=== PATIENT | male | born 1940 | race Caucasian/White ===

== ENCOUNTER 2018-02-25 09:28 | Outpatient (REF) | payer MEDICARE, SELFPAY ==
[2018-02-25 20:38] LABS: Abs Immature Grans 0.01 k/cumm (0.0-0.09); Absolute Basophil Count 0.02 k/cumm (0.0-0.2); Absolute Eosinophil Count 0.06 k/cumm (0.0-0.7); Absolute Lymphocyte Count 1.89 k/cumm (1.2-3.4); Absolute Monocyte Count 0.43 k/cumm (0.11-0.7); Absolute Neutrophil Count 3.36 k/cumm (1.2-6.7); Basophils % 0.3; HCT 44.3 % (40.0-50.0); HGB 14.7 g/dL (13.5-17.5); Immature Grans % 0.2; Lymphocytes % 32.8; Mean Corp. HGB Concentration 33.2 g/dL (32.0-36.0); Mean Corpuscular Hemoglobin 29.6 pg (27.0-33.0); Mean Corpuscular Volume 89.3 fL (80-95); Mean Platelet Volume 12.1 fL (8.0-11.0); Monocytes % 7.5; Neutrophils % 58.2; Platelet Count 113 x1000/uL (130-400); RBC 4.96 m/cumm (4.50-6.00); RBC Distribution Width 13.5 % (11.8-14.1); White Blood Cell Count 5.77 k/cumm (4.4-10.8)
[2018-02-25 20:42] LABS: ALT 21 U/L (12-78); AST 19 U/L (15-37); Albumin 3.5 g/dL (3.4-5.0); Alkaline Phosphatase 62 U/L (46-116); Anion Gap 6.9 mmol/L (3-11); BUN 15 mg/dL (7-18); CO2 26.1 mmol/L (21.0-32.0); CREATININE 0.87 mg/dL (0.70-1.30); Calcium 8.3 mg/dL (8.5-10.1); Chloride 103 mmol/L (98-107); Glucose 189 mg/dL (70-100); LDH 173 U/L (85-227); Potassium 4.1 mmol/L (3.5-5.1); Sodium 136 mmol/L (136-145); Total Protein 6.4 g/dL (6.4-8.2)
== END 2018-02-25 09:29 ==
LOC: LBN 09:28
PROVIDERS: PCP Internal Medicine; Visit Provider Internal Medicine Hematology & Oncology
DX: C91.90 Lymphoid leukemia, unspecified not having achieved remission (principal)
CPT/HCPCS: 80053; 83615; 85025

== ENCOUNTER 2018-06-11 11:50 | Outpatient (REF) | payer MEDICARE, SELFPAY ==
[2018-06-11 19:39] LABS: Abs Immature Grans 0.01 k/cumm (0.0-0.09); Absolute Basophil Count 0.02 k/cumm (0.0-0.2); Absolute Eosinophil Count 0.07 k/cumm (0.0-0.7); Absolute Lymphocyte Count 1.85 k/cumm (1.2-3.4); Absolute Monocyte Count 0.55 k/cumm (0.11-0.7); Absolute Neutrophil Count 3.53 k/cumm (1.2-6.7); Basophils % 0.3; Eosinophils % 1.2; HCT 44.1 % (40.0-50.0); Immature Grans % 0.2; Lymphocytes % 30.7; Mean Corpuscular Hemoglobin 30.4 pg (27.0-33.0); Mean Corpuscular Volume 89.5 fL (80-95); Mean Platelet Volume 12.6 fL (8.0-11.0); Monocytes % 9.1; Neutrophils % 58.5; Platelet Count 126 x1000/uL (130-400); RBC 4.93 m/cumm (4.50-6.00); RBC Distribution Width 13.2 % (11.8-14.1); White Blood Cell Count 6.03 k/cumm (4.4-10.8)
[2018-06-11 19:56] LABS: ALT 21 U/L (12-78); Anion Gap 7.3 mmol/L (3-11); BUN 16 mg/dL (7-18); CO2 26.7 mmol/L (21.0-32.0); CREATININE 0.88 mg/dL (0.70-1.30); Calcium 8.5 mg/dL (8.5-10.1); Chloride 105 mmol/L (98-107); Glucose 167 mg/dL (70-100); Potassium 3.8 mmol/L (3.5-5.1); Sodium 139 mmol/L (136-145)
[2018-06-11 20:53] LABS: LDL CHOLESTEROL 51 mg/dL (<100)
[2018-06-15 19:28] LABS: AST 18 U/L (15-37); Albumin 3.4 g/dL (3.4-5.0); Alkaline Phosphatase 65 U/L (46-116); Bilirubin, Total 0.9 mg/dL (0.2-1.0); LDH 156 U/L (85-227); Total Protein 6.3 g/dL (6.4-8.2)
== END 2018-06-11 12:10 ==
LOC: NCHCN 11:50
PROVIDERS: PCP Internal Medicine; Visit Provider Internal Medicine
DX: E11.9 Type 2 diabetes mellitus without complications (principal); E78.5 Hyperlipidemia, unspecified; I10 Essential (primary) hypertension; D61.818 Other pancytopenia; N40.0 Benign prostatic hyperplasia without lower urinary tract symptoms; C91.90 Lymphoid leukemia, unspecified not having achieved remission
CPT/HCPCS: 80048; 80053; 83721; 83615; 84460; 85025

== ENCOUNTER 2018-07-20 13:28 | Outpatient (REF) | payer MEDICARE, SELFPAY ==
[2018-07-22 11:56] LABS: PSA, Diagnostic 1.9 ng/ml (0-6.5)
== END 2018-07-20 13:48 ==
LOC: NCHCN 13:28
PROVIDERS: PCP Internal Medicine; Visit Provider Internal Medicine
DX: N40.0 Benign prostatic hyperplasia without lower urinary tract symptoms (principal)
CPT/HCPCS: 84153

== ENCOUNTER 2018-09-22 11:52 | Outpatient (REF) | payer MEDICARE, SELFPAY ==
[2018-09-22 18:45] LABS: Abs Immature Grans 0.09 k/cumm (0.0-0.09); Absolute Eosinophil Count 0.04 k/cumm (0.0-0.7); HCT 43.2 % (40.0-50.0); HGB 14.3 g/dL (13.5-17.5); Mean Corp. HGB Concentration 33.1 g/dL (32.0-36.0); Mean Corpuscular Hemoglobin 29.1 pg (27.0-33.0); Mean Platelet Volume 12.9 fL (8.0-11.0); RBC 4.91 m/cumm (4.50-6.00); RBC Distribution Width 13.4 % (11.8-14.1); White Blood Cell Count 4.37 k/cumm (4.4-10.8)
[2018-09-22 19:19] LABS: ALT 23 U/L (12-78); AST 26 U/L (15-37); Albumin 3.4 g/dL (3.4-5.0); Alkaline Phosphatase 62 U/L (46-116); Anion Gap 9.7 mmol/L (3-11); BUN 15 mg/dL (7-18); Bilirubin, Total 0.6 mg/dL (0.2-1.0); CO2 25.3 mmol/L (21.0-32.0); CREATININE 0.86 mg/dL (0.70-1.30); Calcium 8.2 mg/dL (8.5-10.1); Chloride 103 mmol/L (98-107); Glucose 163 mg/dL (70-100); Potassium 3.9 mmol/L (3.5-5.1); Sodium 138 mmol/L (136-145)
[2018-09-22 20:00] LABS: Platelet Count 90 x1000/uL (130-400)
[2018-09-22 20:01] LABS: Absolute Monocyte Count 0.44 k/cumm (0.11-0.7); Absolute Neutrophil Count 2.45 k/cumm (1.2-6.7); Atypical Lymphocytes % 10; Diff Comment Manual Differential
[2018-09-22 20:02] LABS: RBC Morphology Normal
== END 2018-09-22 12:12 ==
LOC: LBN 11:52
PROVIDERS: PCP Internal Medicine; Visit Provider Nurse Practitioner Adult Health
DX: C91.90 Lymphoid leukemia, unspecified not having achieved remission (principal); D61.810 Antineoplastic chemotherapy induced pancytopenia
CPT/HCPCS: 80053; 85025

== ENCOUNTER 2018-12-01 11:14 | Outpatient (REF) | payer MEDICARE, SELFPAY ==
[2018-12-01 19:25] LABS: Abs Immature Grans 0.01 k/cumm (0.0-0.09); Absolute Basophil Count 0.02 k/cumm (0.0-0.2); Absolute Eosinophil Count 0.03 k/cumm (0.0-0.7); Absolute Lymphocyte Count 1.29 k/cumm (1.2-3.4); Basophils % 0.4; Eosinophils % 0.6; HCT 44.7 % (40.0-50.0); HGB 14.7 g/dL (13.5-17.5); Immature Grans % 0.2; Lymphocytes % 26.6; Mean Corp. HGB Concentration 32.9 g/dL (32.0-36.0); Mean Corpuscular Hemoglobin 28.2 pg (27.0-33.0); Mean Corpuscular Volume 85.6 fL (80-95); Monocytes % 10.3; Neutrophils % 61.9; Platelet Count 102 x1000/uL (130-400); RBC 5.22 m/cumm (4.50-6.00); RBC Distribution Width 13.9 % (11.8-14.1); White Blood Cell Count 4.85 k/cumm (4.4-10.8)
[2018-12-01 19:38] LABS: ALT 24 U/L (12-78); AST 22 U/L (15-37); Albumin 3.3 g/dL (3.4-5.0); Alkaline Phosphatase 70 U/L (46-116); Anion Gap 7.6 mmol/L (3-11); BUN 18 mg/dL (7-18); Bilirubin, Total 0.8 mg/dL (0.2-1.0); CO2 28.4 mmol/L (21.0-32.0); CREATININE 0.93 mg/dL (0.70-1.30); Calcium 8.5 mg/dL (8.5-10.1); Chloride 101 mmol/L (98-107); Glucose 214 mg/dL (70-100); Potassium 4.2 mmol/L (3.5-5.1); Sodium 137 mmol/L (136-145); Total Protein 6.2 g/dL (6.4-8.2)
== END 2018-12-01 11:34 ==
LOC: LBN 11:14
PROVIDERS: PCP Internal Medicine; Visit Provider Nurse Practitioner Adult Health
DX: D61.810 Antineoplastic chemotherapy induced pancytopenia (principal); C91.90 Lymphoid leukemia, unspecified not having achieved remission
CPT/HCPCS: 80053; 85025

== ENCOUNTER 2018-12-16 18:06 | Outpatient (REF) | payer MEDICARE, MEDICAID, SELFPAY ==
[2018-12-16 18:57] LABS: COMMENT (LAB VIEW ONLY) 93.52 mg/dL; Microalb ug/mg Crea 218.2 ug/mg Cr
== END 2018-12-16 18:26 ==
LOC: NCHCN 18:06
PROVIDERS: PCP Internal Medicine; Visit Provider Internal Medicine
DX: R60.0 Localized edema (principal); C91.10 Chronic lymphocytic leukemia of B-cell type not having achieved remission; E11.9 Type 2 diabetes mellitus without complications; F32.9 Major depressive disorder, single episode, unspecified
CPT/HCPCS: 82043; 82570

== ENCOUNTER 2018-12-28 08:26 | Outpatient (REF) | payer MEDICARE, SELFPAY ==
[2018-12-28 18:52] LABS: Abs Immature Grans 0.03 k/cumm (0.0-0.09); Absolute Basophil Count 0.03 k/cumm (0.0-0.2); Absolute Eosinophil Count 0.06 k/cumm (0.0-0.7); Absolute Monocyte Count 0.41 k/cumm (0.11-0.7); Absolute Neutrophil Count 3.05 k/cumm (1.2-6.7); Basophils % 0.6; Eosinophils % 1.3; HCT 42.9 % (40.0-50.0); HGB 14.2 g/dL (13.5-17.5); Immature Grans % 0.6; Lymphocytes % 25.1; Mean Corp. HGB Concentration 33.1 g/dL (32.0-36.0); Mean Corpuscular Hemoglobin 28.7 pg (27.0-33.0); Mean Corpuscular Volume 86.7 fL (80-95); Mean Platelet Volume 12.3 fL (8.0-11.0); Monocytes % 8.6; Neutrophils % 63.8; Platelet Count 104 x1000/uL (130-400); RBC 4.95 m/cumm (4.50-6.00); RBC Distribution Width 13.9 % (11.8-14.1); White Blood Cell Count 4.78 k/cumm (4.4-10.8)
[2018-12-28 18:59] LABS: ALT 24 U/L (12-78); AST 19 U/L (15-37); Albumin 3.2 g/dL (3.4-5.0); Alkaline Phosphatase 65 U/L (46-116); Anion Gap 9.5 mmol/L (3-11); BUN 19 mg/dL (7-18); Bilirubin, Total 0.6 mg/dL (0.2-1.0); CO2 24.5 mmol/L (21.0-32.0); Calcium 8.3 mg/dL (8.5-10.1); Chloride 103 mmol/L (98-107); Glucose 319 mg/dL (70-100); Potassium 4.1 mmol/L (3.5-5.1); Sodium 137 mmol/L (136-145)
== END 2018-12-28 08:46 ==
LOC: LBN 08:26
PROVIDERS: PCP Internal Medicine; Visit Provider Internal Medicine Hematology & Oncology
DX: C91.90 Lymphoid leukemia, unspecified not having achieved remission (principal)
CPT/HCPCS: 80053; 85025

== ENCOUNTER 2019-01-25 12:41 | Outpatient (REF) | payer MEDICARE, MEDICAID, SELFPAY ==
[2019-01-25 18:56] LABS: Abs Immature Grans 0.02 k/cumm (0.0-0.09); Absolute Basophil Count 0.01 k/cumm (0.0-0.2); Absolute Eosinophil Count 0.05 k/cumm (0.0-0.7); Absolute Lymphocyte Count 1.05 k/cumm (1.2-3.4); Absolute Monocyte Count 0.37 k/cumm (0.11-0.7); Absolute Neutrophil Count 2.92 k/cumm (1.2-6.7); Basophils % 0.2; Eosinophils % 1.1; HCT 43.3 % (40.0-50.0); HGB 14.3 g/dL (13.5-17.5); Immature Grans % 0.5; Lymphocytes % 23.8; Mean Corpuscular Hemoglobin 28.3 pg (27.0-33.0); Mean Corpuscular Volume 85.7 fL (80-95); Mean Platelet Volume 12.6 fL (8.0-11.0); Monocytes % 8.4; Platelet Count 109 x1000/uL (130-400); RBC 5.05 m/cumm (4.50-6.00); RBC Distribution Width 13.9 % (11.8-14.1); White Blood Cell Count 4.42 k/cumm (4.4-10.8)
[2019-01-25 19:04] LABS: ALT 26 U/L (12-78); AST 17 U/L (15-37); Albumin 3.3 g/dL (3.4-5.0); Alkaline Phosphatase 73 U/L (46-116); Anion Gap 8.9 mmol/L (3-11); BUN 21 mg/dL (7-18); Bilirubin, Total 0.8 mg/dL (0.2-1.0); CO2 25.1 mmol/L (21.0-32.0); CREATININE 0.94 mg/dL (0.70-1.30); Calcium 8.7 mg/dL (8.5-10.1); Chloride 103 mmol/L (98-107); Glucose 321 mg/dL (70-100); LDH 171 U/L (85-227); Potassium 3.9 mmol/L (3.5-5.1); Sodium 137 mmol/L (136-145); Total Protein 6.2 g/dL (6.4-8.2)
== END 2019-01-25 13:01 ==
LOC: LBN 12:41
PROVIDERS: PCP Internal Medicine; Visit Provider Internal Medicine Hematology & Oncology
DX: C91.90 Lymphoid leukemia, unspecified not having achieved remission (principal)
CPT/HCPCS: 80053; 83615; 85025

== ENCOUNTER 2019-02-24 11:19 | Outpatient (REF) | payer MEDICARE, MEDICAID, SELFPAY ==
[2019-02-24 20:23] LABS: Abs Immature Grans 0.01 k/cumm (0.0-0.09); Absolute Basophil Count 0.01 k/cumm (0.0-0.2); Absolute Eosinophil Count 0.04 k/cumm (0.0-0.7); Absolute Lymphocyte Count 1.03 k/cumm (1.2-3.4); Absolute Monocyte Count 0.57 k/cumm (0.11-0.7); Absolute Neutrophil Count 3.09 k/cumm (1.2-6.7); Basophils % 0.2; Eosinophils % 0.8; HCT 43.2 % (40.0-50.0); HGB 14.2 g/dL (13.5-17.5); Immature Grans % 0.2; Lymphocytes % 21.7; Mean Corp. HGB Concentration 32.9 g/dL (32.0-36.0); Mean Corpuscular Hemoglobin 28.7 pg (27.0-33.0); Mean Corpuscular Volume 87.3 fL (80-95); Mean Platelet Volume 12.2 fL (8.0-11.0); Neutrophils % 65.1; Platelet Count 103 x1000/uL (130-400); RBC 4.95 m/cumm (4.50-6.00); RBC Distribution Width 13.9 % (11.8-14.1); White Blood Cell Count 4.75 k/cumm (4.4-10.8)
[2019-02-24 20:40] LABS: ALT 25 U/L (12-78); AST 17 U/L (15-37); Albumin 3.3 g/dL (3.4-5.0); Alkaline Phosphatase 65 U/L (46-116); Anion Gap 9.6 mmol/L (3-11); BUN 19 mg/dL (7-18); Bilirubin, Total 0.8 mg/dL (0.2-1.0); CO2 25.4 mmol/L (21.0-32.0); CREATININE 1.11 mg/dL (0.70-1.30); Calcium 7.8 mg/dL (8.5-10.1); Chloride 105 mmol/L (98-107); Glucose 234 mg/dL (70-100); Potassium 4.4 mmol/L (3.5-5.1); Sodium 140 mmol/L (136-145); Total Protein 6.1 g/dL (6.4-8.2)
== END 2019-02-24 11:39 ==
LOC: LBN 11:19
PROVIDERS: PCP Internal Medicine; Visit Provider Internal Medicine Hematology & Oncology
DX: C91.90 Lymphoid leukemia, unspecified not having achieved remission (principal)
CPT/HCPCS: 80053; 85025

== ENCOUNTER 2019-03-19 17:46 | Outpatient (REF) | payer MEDICARE, MEDICAID, SELFPAY ==
[2019-03-19 19:37] LABS: Abs Immature Grans 0.01 k/cumm (0.0-0.09); Absolute Basophil Count 0.01 k/cumm (0.0-0.2); Absolute Eosinophil Count 0.03 k/cumm (0.0-0.7); Absolute Monocyte Count 0.44 k/cumm (0.11-0.7); Basophils % 0.3; Eosinophils % 0.8; HCT 42.8 % (40.0-50.0); HGB 13.9 g/dL (13.5-17.5); Immature Grans % 0.3; Lymphocytes % 25.6; Mean Corp. HGB Concentration 32.5 g/dL (32.0-36.0); Mean Corpuscular Hemoglobin 27.9 pg (27.0-33.0); Mean Corpuscular Volume 85.9 fL (80-95); Mean Platelet Volume 12.1 fL (8.0-11.0); Monocytes % 11.3; Neutrophils % 61.7; Platelet Count 117 x1000/uL (130-400); RBC 4.98 m/cumm (4.50-6.00); RBC Distribution Width 13.8 % (11.8-14.1); White Blood Cell Count 3.91 k/cumm (4.4-10.8)
[2019-03-19 19:38] LABS: Absolute Neutrophil Count 2.41 k/cumm (1.2-6.7)
[2019-03-19 19:48] LABS: ALT 22 U/L (16-63); AST 21 U/L (15-37); Albumin 3.3 g/dL (3.4-5.0); Alkaline Phosphatase 80 U/L (46-116); BUN 21 mg/dL (7-18); CREATININE 1.09 mg/dL (0.70-1.30); Calcium 8.2 mg/dL (8.5-10.1); Chloride 104 mmol/L (98-107); Glucose 172 mg/dL (70-100); Potassium 4.1 mmol/L (3.5-5.1); Sodium 140 mmol/L (136-145); Total Protein 6.1 g/dL (6.4-8.2)
== END 2019-03-19 18:06 ==
LOC: NCHCN 17:46
PROVIDERS: PCP Internal Medicine; Visit Provider Internal Medicine
DX: D61.818 Other pancytopenia (principal); C91.10 Chronic lymphocytic leukemia of B-cell type not having achieved remission
CPT/HCPCS: 80053; 85025

== ENCOUNTER 2019-07-23 10:30 | Outpatient (REF) | payer MEDICARE, MEDICAID, SELFPAY ==
[2019-07-23 19:29] LABS: Abs Immature Grans 0.01 k/cumm (0.0-0.09); Absolute Basophil Count 0.01 k/cumm (0.0-0.2); Absolute Eosinophil Count 0.02 k/cumm (0.0-0.7); Absolute Lymphocyte Count 0.94 k/cumm (1.2-3.4); Absolute Monocyte Count 0.39 k/cumm (0.11-0.7); Absolute Neutrophil Count 2.49 k/cumm (1.2-6.7); Basophils % 0.3; Eosinophils % 0.5; HCT 44.2 % (40.0-50.0); HGB 14.2 g/dL (13.5-17.5); Immature Grans % 0.3 %; Lymphocytes % 24.4; Mean Corp. HGB Concentration 32.1 g/dL (32.0-36.0); Mean Corpuscular Hemoglobin 26.6 pg (27.0-33.0); Mean Corpuscular Volume 82.9 fL (80-95); Mean Platelet Volume 11.9 fL (8.0-11.0); Monocytes % 10.1; Neutrophils % 64.4; Platelet Count 110 x1000/uL (130-400); RBC 5.33 m/cumm (4.50-6.00); RBC Distribution Width 14.2 % (11.8-14.1); White Blood Cell Count 3.86 k/cumm (4.4-10.8)
[2019-07-23 19:36] LABS: ALT 22 U/L (16-63); AST 22 U/L (15-37); Albumin 3.4 g/dL (3.4-5.0); Alkaline Phosphatase 68 U/L (46-116); Anion Gap 6.9 mmol/L (3-11); BUN 19 mg/dL (7-18); Bilirubin, Total 0.8 mg/dL (0.2-1.0); CO2 29.1 mmol/L (21.0-32.0); CREATININE 0.95 mg/dL (0.70-1.30); Calcium 8.5 mg/dL (8.5-10.1); Chloride 102 mmol/L (98-107); Glucose 195 mg/dL (74-106); LDH 194 U/L (85-227); Potassium 4.2 mmol/L (3.5-5.1); Sodium 138 mmol/L (136-145); Total Protein 6.2 g/dL (6.4-8.2)
== END 2019-07-23 10:50 ==
LOC: LBN 10:30
PROVIDERS: PCP Internal Medicine; Visit Provider Internal Medicine Hematology & Oncology
DX: C91.10 Chronic lymphocytic leukemia of B-cell type not having achieved remission (principal)
CPT/HCPCS: 80053; 83615; 85025

== ENCOUNTER 2019-11-03 15:15 | Outpatient (REF) | payer MEDICARE, MEDICAID, SELFPAY ==
[2019-11-03 19:12] LABS: Albumin 3.2 g/dL (3.4-5.0); Anion Gap 5.8 mmol/L (3-11); BUN 16 mg/dL (7-18); CO2 29.2 mmol/L (21.0-32.0); CREATININE 1.01 mg/dL (0.70-1.30); Calcium 8.6 mg/dL (8.5-10.1); Chloride 103 mmol/L (98-107); Glucose 103 mg/dL (74-106); Potassium 3.5 mmol/L (3.5-5.1); Sodium 138 mmol/L (136-145)
[2019-11-03 19:33] LABS: COMMENT (LAB VIEW ONLY) 245.77 mg/dL; Prot/Crea Ur Ratio 0.42
== END 2019-11-03 15:35 ==
LOC: NCHCN 15:15
PROVIDERS: PCP Internal Medicine; Visit Provider Internal Medicine
DX: R60.0 Localized edema (principal)
CPT/HCPCS: 80048; 82040; 82565; 84156

== ENCOUNTER 2019-12-31 09:45 | Outpatient (REF) | payer MEDICARE, SELFPAY ==
[2019-12-31 19:29] LABS: Abs Immature Grans 0.01 k/cumm (0.0-0.09); Absolute Basophil Count 0.01 k/cumm (0.0-0.2); Absolute Eosinophil Count 0.08 k/cumm (0.0-0.7); Absolute Lymphocyte Count 1.09 k/cumm (1.2-3.4); Absolute Monocyte Count 0.53 k/cumm (0.11-0.7); Absolute Neutrophil Count 3.15 k/cumm (1.2-6.7); Basophils % 0.2; Eosinophils % 1.6; HCT 39.6 % (40.0-50.0); HGB 12.5 g/dL (13.5-17.5); Immature Grans % 0.2 %; Lymphocytes % 22.4; Mean Corp. HGB Concentration 31.6 g/dL (32.0-36.0); Mean Corpuscular Hemoglobin 25.5 pg (27.0-33.0); Mean Corpuscular Volume 80.8 fL (80-95); Mean Platelet Volume 11.7 fL (8.0-11.0); Monocytes % 10.9; Neutrophils % 64.7; Platelet Count 150 x1000/uL (130-400); RBC Distribution Width 16.1 % (11.8-14.1); White Blood Cell Count 4.87 k/cumm (4.4-10.8)
[2019-12-31 19:42] LABS: ALT 29 U/L (16-63); AST 26 U/L (15-37); Alkaline Phosphatase 75 U/L (46-116); Anion Gap 6.5 mmol/L (3-11); BUN 15 mg/dL (7-18); CO2 27.5 mmol/L (21.0-32.0); CREATININE 1.02 mg/dL (0.70-1.30); Calcium 8.3 mg/dL (8.5-10.1); Chloride 100 mmol/L (98-107); Glucose 191 mg/dL (74-106); LDH 140 U/L (85-227); Potassium 4.3 mmol/L (3.5-5.1); Sodium 134 mmol/L (136-145)
[2020-01-03 12:10] LABS: IgA 152 mg/dL (85-499); IgG 913 mg/dL (610-1,616); IgM 26 mg/dL (35-242)
== END 2019-12-31 10:05 ==
LOC: LBN 09:45
PROVIDERS: PCP Internal Medicine; Visit Provider Internal Medicine Hematology & Oncology
DX: C91.10 Chronic lymphocytic leukemia of B-cell type not having achieved remission (principal)
CPT/HCPCS: 80053; 82784; 83615; 85025

== ENCOUNTER 2020-01-06 08:45 | Outpatient (REF) | payer MEDICARE, SELFPAY ==
[2020-01-06 19:11] LABS: Reticulocyte 1.4 % (0.5-2.4)
[2020-01-06 19:16] LABS: Iron 43 ug/dL (65-175); Total Iron Binding Capacity 372 ug/dL (250-450); Transferrin Sat 12 % (20-55)
[2020-01-06 20:04] LABS: Ferritin 55 ng/mL (26-388)
== END 2020-01-06 09:05 ==
LOC: LBN 08:45
PROVIDERS: PCP Internal Medicine; Visit Provider Nurse Practitioner Family
DX: D64.9 Anemia, unspecified (principal)
CPT/HCPCS: 82728; 83540; 83550; 85045

== ENCOUNTER 2020-05-05 15:23 | Outpatient (REF) | payer MEDICARE, MEDICAID, SELFPAY ==
[2020-05-05 19:05] LABS: Abs Immature Grans 0.01 10^3/uL (0.0-0.06); Absolute Basophil Count 0.02 10^3/uL (0.0-0.2); Absolute Eosinophil Count 0.03 10^3/uL (0.0-0.7); Absolute Lymphocyte Count 1.05 10^3/uL (1.2-3.4); Absolute Monocyte Count 0.55 10^3/uL (0.1-0.8); Absolute Neutrophil Count 2.45 10^3/uL (1.2-6.7); Basophils % 0.5; Eosinophils % 0.7; HGB 12.7 g/dL (13.5-17.5); Immature Grans % 0.2; Lymphocytes % 25.5; MCH 27.7 pg (27.0-33.0); MCHC 31.8 % (32.0-36.0); MCV 87.3 fL (80-95); MPV 12.7 fL (8.0-11.0); Monocytes % 13.4; Neutrophils % 59.7; Nucleated RBC 0 %; Platelet Count 136 10^3/uL (130-400); RBC 4.58 10^6/uL (4.36-5.78); RDW 15.3 % (11.8-14.1); RDW-SD 49.1 fL; WBC 4.11 10^3/uL (4.4-10.8)
[2020-05-05 19:21] LABS: Iron 40 ug/dL (65-175); Total Iron Binding Capacity 356 ug/dL (250-450); Transferrin Sat 11 % (20-55)
[2020-05-05 19:29] LABS: Albumin 3.6 g/dL (3.4-5.0); Anion Gap 7.9 mmol/L (3-11); BUN 18 mg/dL (7-18); CO2 28.1 mmol/L (21.0-32.0); CREATININE 1.13 mg/dL (0.70-1.30); Calcium 8.5 mg/dL (8.5-10.1); Chloride 102 mmol/L (98-107); Ferritin 53 ng/mL (26-388); Glucose 90 mg/dL (74-106); Potassium 3.8 mmol/L (3.5-5.1); Sodium 138 mmol/L (136-145)
[2020-05-05 19:54] LABS: NT-proBNP 1238 pg/mL (<300); PHOSPHORUS 3.7 mg/dL (2.6-4.7)
== END 2020-05-05 15:43 ==
LOC: NCHCN 15:23
PROVIDERS: PCP Internal Medicine; Visit Provider Internal Medicine
DX: E11.9 Type 2 diabetes mellitus without complications (principal); I10 Essential (primary) hypertension; R60.0 Localized edema; G47.20 Circadian rhythm sleep disorder, unspecified type
CPT/HCPCS: 80069; 82728; 83540; 83550; 83880; 85025

== ENCOUNTER 2020-05-29 15:05 | Outpatient (REF) | payer MEDICARE, MEDICAID, SELFPAY ==
[2020-05-29 20:34] LABS: Abs Immature Grans 0.01 10^3/uL (0.0-0.06); Absolute Basophil Count 0.03 10^3/uL (0.0-0.2); Absolute Eosinophil Count 0.05 10^3/uL (0.0-0.7); Absolute Lymphocyte Count 1.03 10^3/uL (1.2-3.4); Absolute Monocyte Count 0.46 10^3/uL (0.1-0.8); Absolute Neutrophil Count 2.76 10^3/uL (1.2-6.7); Basophils % 0.7; Eosinophils % 1.2; HCT 41.4 % (40.0-50.0); HGB 12.9 g/dL (13.5-17.5); Immature Grans % 0.2; Lymphocytes % 23.7; MCH 27.6 pg (27.0-33.0); MCHC 31.2 % (32.0-36.0); MCV 88.5 fL (80-95); MPV 12.5 fL (8.0-11.0); Monocytes % 10.6; Neutrophils % 63.6; Nucleated RBC 0 %; Platelet Count 129 10^3/uL (130-400); RBC 4.68 10^6/uL (4.36-5.78); RDW 13.8 % (11.8-14.1); RDW-SD 44.3 fL; Reticulocyte 1.5 % (0.5-2.4); WBC 4.34 10^3/uL (4.4-10.8)
[2020-05-29 20:45] LABS: Iron 108 ug/dL (65-175); Total Iron Binding Capacity 344 ug/dL (250-450); Transferrin Sat 31 % (20-55)
[2020-05-29 21:01] LABS: ALT 21 U/L (16-63); AST 21 U/L (15-37); Albumin 3.5 g/dL (3.4-5.0); Alkaline Phosphatase 63 U/L (46-116); Anion Gap 8.1 mmol/L (3-11); BUN 21 mg/dL (7-18); Bilirubin, Total 0.8 mg/dL (0.2-1.0); CO2 24.9 mmol/L (21.0-32.0); CREATININE 1.08 mg/dL (0.70-1.30); Calcium 8.4 mg/dL (8.5-10.1); Chloride 104 mmol/L (98-107); Ferritin 66 ng/mL (26-388); Glucose 179 mg/dL (74-106); Potassium 4.6 mmol/L (3.5-5.1); Sodium 137 mmol/L (136-145); Total Protein 6.2 g/dL (6.4-8.2)
[2020-05-29 21:12] LABS: LDH 177 U/L (85-227)
[2020-06-05 16:54] LABS: IgA 142 mg/dL (61-356); IgG 973 mg/dL (767-1590)
[2020-06-05 16:55] LABS: IgM 20 mg/dL (37-286)
== END 2020-05-29 15:25 ==
LOC: LBN 15:05
PROVIDERS: PCP Internal Medicine; Visit Provider Internal Medicine Hematology & Oncology
DX: C91.10 Chronic lymphocytic leukemia of B-cell type not having achieved remission (principal); D64.9 Anemia, unspecified
CPT/HCPCS: 80053; 82784; 82728; 83540; 83550; 83615; 85025; 85045

== ENCOUNTER 2020-07-17 13:08 | Outpatient (REF) | payer MEDICARE, MEDICAID, SELFPAY ==
[2020-07-17 15:19] LABS: Abs Immature Grans 0.02 10^3/uL (0.0-0.06); Absolute Basophil Count 0.03 10^3/uL (0.0-0.2); Absolute Lymphocyte Count 1.15 10^3/uL (1.2-3.4); Absolute Monocyte Count 0.44 10^3/uL (0.1-0.8); Absolute Neutrophil Count 4.23 10^3/uL (1.2-6.7); Basophils % 0.5; Eosinophils % 3.3; HCT 42.8 % (40.0-50.0); Immature Grans % 0.3; Lymphocytes % 18.9; MCH 27.8 pg (27.0-33.0); MCHC 32.7 % (32.0-36.0); MCV 84.9 fL (80-95); MPV 10.3 fL (8.0-11.0); Monocytes % 7.2; Neutrophils % 69.8; Nucleated RBC 0 %; Platelet Count 205 10^3/uL (130-400); RBC 5.04 10^6/uL (4.36-5.78); RDW 13.1 % (11.8-14.1); RDW-SD 40.5 fL; Reticulocyte 1.5 % (0.5-2.4); WBC 6.07 10^3/uL (4.4-10.8)
[2020-07-17 15:45] LABS: ALT 22 U/L (16-63); AST 16 U/L (15-37); Albumin 3.4 g/dL (3.4-5.0); Alkaline Phosphatase 82 U/L (46-116); Anion Gap 6.7 mmol/L (3-11); BUN 13 mg/dL (7-18); Bilirubin, Total 0.6 mg/dL (0.2-1.0); CO2 27.3 mmol/L (21.0-32.0); CREATININE 1.11 mg/dL (0.70-1.30); Calcium 8.6 mg/dL (8.5-10.1); Chloride 101 mmol/L (98-107); Ferritin 68 ng/mL (26-388); Glucose 251 mg/dL (74-106); Potassium 4.4 mmol/L (3.5-5.1); Sodium 135 mmol/L (136-145); Total Protein 6.4 g/dL (6.4-8.2)
[2020-07-17 16:00] LABS: LDH 164 U/L (85-227)
[2020-07-17 16:11] LABS: Iron 73 ug/dL (65-175); Total Iron Binding Capacity 338 ug/dL (250-450); Transferrin Sat 22 % (20-55)
[2020-07-18 09:25] LABS: IgA 145 mg/dL (85-499); IgG 886 mg/dL (610-1,616); IgM 67 mg/dL (35-242)
== END 2020-07-17 13:28 ==
LOC: LBN 13:08
PROVIDERS: PCP Internal Medicine; Visit Provider Internal Medicine Hematology & Oncology
DX: C91.10 Chronic lymphocytic leukemia of B-cell type not having achieved remission (principal); D64.9 Anemia, unspecified
CPT/HCPCS: 80053; 82784; 82728; 83540; 83550; 83615; 85025; 85045

== ENCOUNTER 2020-11-22 22:07 | Outpatient (REF) | payer MEDICARE, MEDICAID, SELFPAY ==
[2020-11-22 20:45] LABS: Iron 116 ug/dL (65-175); Total Iron Binding Capacity 329 ug/dL (250-450); Transferrin Sat 35 % (20-55)
[2020-11-22 20:54] LABS: Abs Immature Grans 0.02 10^3/uL (0.0-0.06); Absolute Basophil Count 0.05 10^3/uL (0.0-0.2); Absolute Eosinophil Count 0.04 10^3/uL (0.0-0.7); Absolute Lymphocyte Count 1.29 10^3/uL (1.2-3.4); Absolute Monocyte Count 0.52 10^3/uL (0.1-0.8); Absolute Neutrophil Count 4.05 10^3/uL (1.2-6.7); Basophils % 0.8; Eosinophils % 0.7; HCT 41.1 % (40.0-50.0); HGB 13.4 g/dL (13.5-17.5); Immature Grans % 0.3; Lymphocytes % 21.6; MCH 28.1 pg (27.0-33.0); MCHC 32.6 % (32.0-36.0); MCV 86.2 fL (80-95); Monocytes % 8.7; Neutrophils % 67.9; Nucleated RBC 0 %; Platelet Count 157 10^3/uL (130-400); RBC 4.77 10^6/uL (4.36-5.78); RDW 14.4 % (11.8-14.1); RDW-SD 45.4 fL; WBC 5.97 10^3/uL (4.4-10.8)
[2020-11-22 21:55] LABS: Anion Gap 13.8 mmol/L (3-11); BUN 30 mg/dL (7-18); CO2 21.2 mmol/L (21.0-32.0); CREATININE 1.2 mg/dL (0.70-1.30); Calcium 8.6 mg/dL (8.5-10.1); Chloride 103 mmol/L (98-107); Ferritin 143 ng/mL (26-388); Glucose 151 mg/dL (74-106); LDH 168 U/L (85-227); Potassium 4.6 mmol/L (3.5-5.1); Sodium 138 mmol/L (136-145)
== END 2020-11-22 22:08 | disposition home or self-care (01) ==
LOC: NCHCN 22:07
PROVIDERS: PCP Internal Medicine; Visit Provider Internal Medicine
DX: I10 Essential (primary) hypertension (principal); E11.9 Type 2 diabetes mellitus without complications; I48.0 Paroxysmal atrial fibrillation; M54.32 Sciatica, left side
CPT/HCPCS: 80048; 82728; 83540; 83550; 83615; 85025

== ENCOUNTER 2021-03-05 19:32 | Outpatient (REF) | payer MEDICARE, MEDICAID, SELFPAY ==
[2021-03-05 18:55] LABS: Abs Immature Grans 0.01 10^3/uL (0.0-0.06); Absolute Basophil Count 0.02 10^3/uL (0.0-0.2); Absolute Eosinophil Count 0.04 10^3/uL (0.0-0.7); Absolute Monocyte Count 0.47 10^3/uL (0.1-0.8); Absolute Neutrophil Count 3.49 10^3/uL (1.2-6.7); Basophils % 0.4; Eosinophils % 0.8; HCT 41.2 % (40.0-50.0); HGB 13.1 g/dL (13.5-17.5); Immature Grans % 0.2; Lymphocytes % 21.4; MCH 29.4 pg (27.0-33.0); MCHC 31.8 % (32.0-36.0); MCV 92.4 fL (80-95); Monocytes % 9.2; Nucleated RBC 0 %; Platelet Count 139 10^3/uL (130-400); RBC 4.46 10^6/uL (4.36-5.78); RDW 13.6 % (11.8-14.1); RDW-SD 46.5 fL; WBC 5.13 10^3/uL (4.4-10.8)
[2021-03-05 18:57] LABS: Anion Gap 6.2 mmol/L (3-11); BUN 22 mg/dL (7-18); CO2 24.8 mmol/L (21.0-32.0); CREATININE 1.1 mg/dL (0.70-1.30); Calcium 8.7 mg/dL (8.5-10.1); Chloride 104 mmol/L (98-107); Glucose 174 mg/dL (74-106); Potassium 4.9 mmol/L (3.5-5.1); Sodium 135 mmol/L (136-145)
== END 2021-03-05 19:33 | disposition home or self-care (01) ==
LOC: NCHCN 19:32
PROVIDERS: PCP Internal Medicine; Visit Provider Internal Medicine
DX: E11.9 Type 2 diabetes mellitus without complications (principal); C91.10 Chronic lymphocytic leukemia of B-cell type not having achieved remission; I48.0 Paroxysmal atrial fibrillation
CPT/HCPCS: 80048; 85025

== ENCOUNTER 2021-07-30 15:04 | Outpatient (REF) | payer MEDICARE, MEDICAID, SELFPAY ==
[2021-07-30 21:01] LABS: Abs Immature Grans 0.02 10^3/uL (0.0-0.06); Absolute Basophil Count 0.03 10^3/uL (0.0-0.2); Absolute Eosinophil Count 0.04 10^3/uL (0.0-0.7); Absolute Lymphocyte Count 1.63 10^3/uL (1.2-3.4); Absolute Monocyte Count 0.61 10^3/uL (0.1-0.8); Absolute Neutrophil Count 4.31 10^3/uL (1.2-6.7); Basophils % 0.5; Eosinophils % 0.6; HCT 42.8 % (40.0-50.0); HGB 13.6 g/dL (13.5-17.5); Immature Grans % 0.3; Lymphocytes % 24.5; MCH 29.1 pg (27.0-33.0); MCHC 31.8 % (32.0-36.0); MCV 91.5 fL (80-95); MPV 11.9 fL (8.0-11.0); Monocytes % 9.2; Neutrophils % 64.9; Nucleated RBC 0 %; Platelet Count 136 10^3/uL (130-400); RBC 4.68 10^6/uL (4.36-5.78); RDW 13.3 % (11.8-14.1); RDW-SD 45.1 fL; WBC 6.64 10^3/uL (4.4-10.8)
== END 2021-07-30 15:05 | disposition home or self-care (01) ==
LOC: NCHCN 15:04
PROVIDERS: PCP Internal Medicine; Visit Provider Internal Medicine
DX: C91.10 Chronic lymphocytic leukemia of B-cell type not having achieved remission (principal)
CPT/HCPCS: 85025

== ENCOUNTER 2021-10-23 16:02 | Outpatient (REF) | payer MEDICARE, MEDICAID, SELFPAY ==
[2021-10-23 21:58] LABS: Abs Immature Grans 0.01 10^3/uL (0.0-0.06); Absolute Basophil Count 0.02 10^3/uL (0.0-0.2); Absolute Eosinophil Count 0.02 10^3/uL (0.0-0.7); Absolute Monocyte Count 0.38 10^3/uL (0.1-0.8); Absolute Neutrophil Count 2.08 10^3/uL (1.2-6.7); Basophils % 0.6; Eosinophils % 0.6; HCT 42.1 % (40.0-50.0); HGB 13.1 g/dL (13.5-17.5); Immature Grans % 0.3; Lymphocytes % 24.2; MCH 27.5 pg (27.0-33.0); MCHC 31.1 % (32.0-36.0); MCV 88.3 fL (80-95); MPV 12.6 fL (8.0-11.0); Monocytes % 11.5; Neutrophils % 62.8; Platelet Count 109 10^3/uL (130-400); RBC 4.77 10^6/uL (4.36-5.78); RDW 12.9 % (11.8-14.1); WBC 3.31 10^3/uL (4.4-10.8)
[2021-10-23 22:52] LABS: ALT 23 U/L (16-63); AST 28 U/L (15-37); Albumin 3.4 g/dL (3.4-5.0); Alkaline Phosphatase 70 U/L (46-116); Anion Gap 9.1 mmol/L (3-11); BUN 14 mg/dL (7-18); Bilirubin, Total 0.8 mg/dL (0.2-1.0); CO2 25.9 mmol/L (21.0-32.0); Calcium 8.5 mg/dL (8.5-10.1); Chloride 102 mmol/L (98-107); Glucose 173 mg/dL (74-106); LDH 185 U/L (85-227); Sodium 137 mmol/L (136-145)
== END 2021-10-23 16:03 | disposition home or self-care (01) ==
LOC: LBN 16:02
PROVIDERS: PCP Internal Medicine; Visit Provider Internal Medicine Hematology & Oncology
DX: C91.10 Chronic lymphocytic leukemia of B-cell type not having achieved remission (principal)
CPT/HCPCS: 80053; 83615; 85025

== ENCOUNTER 2022-02-11 17:59 | Outpatient (REF) | payer MEDICARE, SELFPAY ==
[2022-02-13 09:26] LABS: IgA 124 mg/dL (85-499); IgG 819 mg/dL (610-1,616); IgM 26 mg/dL (35-242)
== END 2022-02-11 18:00 | disposition home or self-care (01) ==
LOC: LBN 17:59
PROVIDERS: PCP Internal Medicine; Visit Provider Internal Medicine Hematology & Oncology
DX: C91.10 Chronic lymphocytic leukemia of B-cell type not having achieved remission (principal)
CPT/HCPCS: 82784

== ENCOUNTER 2022-06-12 03:48 | Outpatient (CLI) | payer MEDICARE, SELFPAY ==
[2022-06-12 07:56] LABS: Abs Immature Grans 0.02 10^3/uL (0.0-0.06); Absolute Basophil Count 0.04 10^3/uL (0.0-0.2); Absolute Eosinophil Count 0.04 10^3/uL (0.0-0.7); Absolute Lymphocyte Count 1.05 10^3/uL (1.2-3.4); Absolute Monocyte Count 0.52 10^3/uL (0.1-0.8); Absolute Neutrophil Count 3.31 10^3/uL (1.2-6.7); Basophils % 0.8; Eosinophils % 0.8; HCT 43.5 % (40.0-50.0); Immature Grans % 0.4; Lymphocytes % 21.1; MCH 26.9 pg (27.0-33.0); MCHC 32.2 % (32.0-36.0); MCV 84 fL (80-95); MPV 11.6 fL (8.0-11.0); Monocytes % 10.4; Neutrophils % 66.5; Platelet Count 128 10^3/uL (130-400); RBC 5.21 10^6/uL (4.36-5.78); RDW 14.4 % (11.8-14.1); RDW-SD 43.5 fL; WBC 4.98 10^3/uL (4.4-10.8)
[2022-06-12 08:17] LABS: ALT 19 U/L (16-63); AST 24 U/L (15-37); Albumin 3.5 g/dL (3.4-5.0); Alkaline Phosphatase 77 U/L (46-116); Anion Gap 6.1 mmol/L (3-11); BUN 15 mg/dL (7-18); Bilirubin, Total 0.9 mg/dL (0.2-1.0); CO2 28.9 mmol/L (21.0-32.0); CREATININE 1.1 mg/dL (0.70-1.30); Calcium 8.7 mg/dL (8.5-10.1); Chloride 103 mmol/L (98-107); Estimated GFR 67.86 (mL/min/1.73m2); Glucose 224 mg/dL (74-106); LDH 190 U/L (85-227); Potassium 4.6 mmol/L (3.5-5.1); Sodium 138 mmol/L (136-145); Total Protein 6.6 g/dL (6.4-8.2)
[2022-06-13 10:01] LABS: IgA 141 mg/dL (85-499); IgG 820 mg/dL (610-1616); IgM 32 mg/dL (35-242)
== END 2022-06-12 03:49 | disposition home or self-care (01) ==
LOC: LBO 03:48
PROVIDERS: PCP Internal Medicine; Visit Provider Internal Medicine Hematology & Oncology
DX: C91.10 Chronic lymphocytic leukemia of B-cell type not having achieved remission (principal)
CPT/HCPCS: 36415; 80053; 82784; 83615; 85025

== ENCOUNTER 2022-10-16 03:03 | Outpatient (CLI) | payer MEDICARE, SELFPAY ==
[2022-10-16 10:04] LABS: Abs Immature Grans 0.02 10^3/uL (0.0-0.06); Absolute Basophil Count 0.03 10^3/uL (0.0-0.2); Absolute Eosinophil Count 0.01 10^3/uL (0.0-0.7); Absolute Lymphocyte Count 0.89 10^3/uL (1.2-3.4); Absolute Monocyte Count 0.63 10^3/uL (0.1-0.8); Absolute Neutrophil Count 5.02 10^3/uL (1.2-6.7); Basophils % 0.5; Eosinophils % 0.2; HCT 47.5 % (40.0-50.0); HGB 15.2 g/dL (13.5-17.5); Immature Grans % 0.3; Lymphocytes % 13.5; MCH 26.9 pg (27.0-33.0); MCV 84 fL (80-95); MPV 11.4 fL (8.0-11.0); Monocytes % 9.5; Platelet Count 126 10^3/uL (130-400); RBC 5.65 10^6/uL (4.36-5.78); RDW 15.1 % (11.8-14.1); RDW-SD 46.1 fL
[2022-10-16 10:27] LABS: ALT 31 U/L (16-63); AST 24 U/L (15-37); Albumin 3.4 g/dL (3.4-5.0); Alkaline Phosphatase 83 U/L (46-116); Anion Gap 6.1 mmol/L (3-11); BUN 22 mg/dL (7-18); Bilirubin, Total 1.1 mg/dL (0.2-1.0); CO2 26.9 mmol/L (21.0-32.0); CREATININE 1.4 mg/dL (0.70-1.30); Calcium 8.6 mg/dL (8.5-10.1); Chloride 103 mmol/L (98-107); Estimated GFR 50.81 (mL/min/1.73m2); Glucose 338 mg/dL (74-106); LDH 168 U/L (85-227); Potassium 4.4 mmol/L (3.5-5.1); Sodium 136 mmol/L (136-145); Total Protein 6.8 g/dL (6.4-8.2)
[2022-10-17 10:45] LABS: IgA 166 mg/dL (85-499); IgG 812 mg/dL (610-1616); IgM 39 mg/dL (35-242)
== END 2022-10-16 03:04 | disposition home or self-care (01) ==
LOC: LBO 03:03
PROVIDERS: PCP Internal Medicine; Visit Provider Internal Medicine Medical Oncology
DX: C91.10 Chronic lymphocytic leukemia of B-cell type not having achieved remission (principal)
CPT/HCPCS: 36415; 80053; 82784; 83615; 85025

== ENCOUNTER 2022-10-17 11:22 | Outpatient (REF) | payer MEDICARE, MEDICAID, SELFPAY ==
[2022-10-17 19:25] LABS: Bilirubin Negative (Negative); Blood Moderate (Negative); Clarity Sl Cloudy (Clear); Glucose 500 mg/dL (Negative); Ketones Negative (Negative); Leukocyte Esterase Small (Negative); Nitrite Negative (Negative); Urobilinogen 0.2 mg/dL (Up to 0.2); pH 5.5 (5-8)
[2022-10-17 19:32] LABS: C & S Indicated? Yes
[2022-10-17 19:33] LABS: WBC >50 HPF (0-5)
== END 2022-10-17 11:23 | disposition home or self-care (01) ==
LOC: NCHCN 11:22
PROVIDERS: PCP Internal Medicine; Visit Provider Internal Medicine
DX: N40.0 Benign prostatic hyperplasia without lower urinary tract symptoms (principal); N32.0 Bladder-neck obstruction
CPT/HCPCS: 87077; 81003; 81015; 87086; 87186

== ENCOUNTER 2022-11-07 18:49 | Outpatient (REF) | payer MEDICARE, MEDICAID, SELFPAY | END 2022-11-07 18:50 | disposition home or self-care (01) | LOC: NCHCN 18:49 | PROVIDERS: PCP Internal Medicine; Visit Provider Internal Medicine | DX: M79.89 Other specified soft tissue disorders (principal); S50.11XA Contusion of right forearm, initial encounter | CPT/HCPCS: 87077; 87070; 87205 ==

== ENCOUNTER 2022-11-21 13:26 | Outpatient (REF) | payer MEDICARE, MEDICAID, SELFPAY ==
[2022-11-21 19:05] LABS: Abs Immature Grans 0.01 10^3/uL (0.0-0.06); Absolute Basophil Count 0.03 10^3/uL (0.0-0.2); Absolute Eosinophil Count 0.04 10^3/uL (0.0-0.7); Absolute Monocyte Count 0.53 10^3/uL (0.1-0.8); Absolute Neutrophil Count 3.29 10^3/uL (1.2-6.7); Basophils % 0.6; Eosinophils % 0.8; HCT 41.4 % (40.0-50.0); HGB 13.5 g/dL (13.5-17.5); Immature Grans % 0.2; Lymphocytes % 20.4; MCH 27.4 pg (27.0-33.0); MCHC 32.6 % (32.0-36.0); MCV 84 fL (80-95); MPV 11.2 fL (8.0-11.0); Monocytes % 10.8; Neutrophils % 67.2; Platelet Count 118 10^3/uL (130-400); RBC 4.92 10^6/uL (4.36-5.78); RDW 14.5 % (11.8-14.1); RDW-SD 44.5 fL
== END 2022-11-21 13:27 | disposition home or self-care (01) ==
LOC: NCHCN 13:26
PROVIDERS: PCP Internal Medicine; Visit Provider Internal Medicine
DX: D69.59 Other secondary thrombocytopenia (principal); D64.9 Anemia, unspecified; L03.114 Cellulitis of left upper limb
CPT/HCPCS: 87077; 85025; 87070; 87205

== ENCOUNTER 2023-02-19 02:52 | Outpatient (CLI) | payer MEDICARE, MEDICAID, SELFPAY ==
[2023-02-19 12:57] LABS: Abs Immature Grans 0.01 10^3/uL (0.0-0.06); Absolute Basophil Count 0.03 10^3/uL (0.0-0.2); Absolute Eosinophil Count 0.03 10^3/uL (0.0-0.7); Absolute Lymphocyte Count 1.27 10^3/uL (1.2-3.4); Absolute Monocyte Count 0.45 10^3/uL (0.1-0.8); Absolute Neutrophil Count 2.69 10^3/uL (1.2-6.7); Basophils % 0.7; Eosinophils % 0.7; HGB 14.5 g/dL (13.5-17.5); Immature Grans % 0.2; Lymphocytes % 28.3; MCH 27.3 pg (27.0-33.0); MCHC 32.2 % (32.0-36.0); MCV 85 fL (80-95); MPV 11.2 fL (8.0-11.0); Neutrophils % 60.1; Platelet Count 108 10^3/uL (130-400); RBC 5.31 10^6/uL (4.36-5.78); RDW 14.6 % (11.8-14.1); RDW-SD 45.3 fL; WBC 4.48 10^3/uL (4.4-10.8)
[2023-02-19 13:11] LABS: ALT 15 U/L (16-63); AST 18 U/L (15-37); Albumin 3.3 g/dL (3.4-5.0); Alkaline Phosphatase 75 U/L (46-116); Anion Gap 6.2 mmol/L (3-11); BUN 17 mg/dL (7-18); Bilirubin, Total 1.2 mg/dL (0.2-1.0); CO2 29.8 mmol/L (21.0-32.0); CREATININE 1.2 mg/dL (0.70-1.30); Calcium 8.7 mg/dL (8.5-10.1); Chloride 103 mmol/L (98-107); Estimated GFR 60.75 (mL/min/1.73m2); Glucose 253 mg/dL (74-106); Sodium 139 mmol/L (136-145); Total Protein 6.5 g/dL (6.4-8.2)
[2023-02-19 14:52] LABS: LDH 226 U/L (85-227)
[2023-02-20 10:08] LABS: IgA 165 mg/dL (85-499); IgG 935 mg/dL (610-1616); IgM 33 mg/dL (35-242)
== END 2023-02-19 02:53 | disposition home or self-care (01) ==
LOC: LBO 02:52
PROVIDERS: PCP Internal Medicine; Visit Provider Internal Medicine Hematology & Oncology
DX: C91.10 Chronic lymphocytic leukemia of B-cell type not having achieved remission (principal)
CPT/HCPCS: 36415; 80053; 82784; 83615; 85025

== ENCOUNTER 2023-03-26 03:57 | Outpatient (CLI) | payer MEDICARE, MEDICAID, SELFPAY ==
[2023-03-26 12:01] LABS: Abs Immature Grans 0.01 10^3/uL (0.0-0.06); Absolute Basophil Count 0.04 10^3/uL (0.0-0.2); Absolute Eosinophil Count 0.14 10^3/uL (0.0-0.7); Absolute Lymphocyte Count 1.07 10^3/uL (1.2-3.4); Basophils % 0.9; Eosinophils % 3.2; HCT 45.8 % (40.0-50.0); Immature Grans % 0.2; Lymphocytes % 24.5; MCH 27.7 pg (27.0-33.0); MCHC 32.8 % (32.0-36.0); MCV 85 fL (80-95); MPV 10.4 fL (8.0-11.0); Monocytes % 9.2; Platelet Count 143 10^3/uL (130-400); RBC 5.41 10^6/uL (4.36-5.78); RDW 15.3 % (11.8-14.1); RDW-SD 46.9 fL; WBC 4.36 10^3/uL (4.4-10.8)
[2023-03-26 12:14] LABS: ALT 17 U/L (16-63); AST 12 U/L (15-37); Albumin 3.4 g/dL (3.4-5.0); Alkaline Phosphatase 73 U/L (46-116); Anion Gap 5.7 mmol/L (3-11); BUN 18 mg/dL (7-18); Bilirubin, Total 0.9 mg/dL (0.2-1.0); CO2 29.3 mmol/L (21.0-32.0); CREATININE 1.2 mg/dL (0.70-1.30); Calcium 8.8 mg/dL (8.5-10.1); Chloride 103 mmol/L (98-107); Estimated GFR 60.75 (mL/min/1.73m2); Glucose 188 mg/dL (74-106); LDH 160 U/L (85-227); Potassium 4.2 mmol/L (3.5-5.1); Sodium 138 mmol/L (136-145); Total Protein 6.9 g/dL (6.4-8.2)
[2023-03-27 08:50] LABS: IgA 169 mg/dL (85-499); IgG 942 mg/dL (610-1616); IgM 34 mg/dL (35-242)
== END 2023-03-26 03:58 | disposition home or self-care (01) ==
LOC: LBO 03:58
PROVIDERS: PCP Internal Medicine; Visit Provider Internal Medicine Hematology & Oncology
DX: C91.10 Chronic lymphocytic leukemia of B-cell type not having achieved remission (principal)
CPT/HCPCS: 36415; 80053; 82784; 83615; 85025

== ENCOUNTER 2023-05-20 01:28 | Outpatient (CLI) | payer MEDICARE, MEDICAID, SELFPAY ==
[2023-05-20 07:23] LABS: Abs Immature Grans 0.02 10^3/uL (0.0-0.06); Absolute Basophil Count 0.04 10^3/uL (0.0-0.2); Absolute Eosinophil Count 0.09 10^3/uL (0.0-0.7); Absolute Lymphocyte Count 0.98 10^3/uL (1.2-3.4); Absolute Monocyte Count 0.44 10^3/uL (0.1-0.8); Absolute Neutrophil Count 3.88 10^3/uL (1.2-6.7); Basophils % 0.7; Eosinophils % 1.7; HCT 47.7 % (40.0-50.0); HGB 15.7 g/dL (13.5-17.5); Immature Grans % 0.4; MCH 28.9 pg (27.0-33.0); MCHC 32.9 % (32.0-36.0); MCV 88 fL (80-95); MPV 10.2 fL (8.0-11.0); Monocytes % 8.1; Neutrophils % 71.1; Platelet Count 168 10^3/uL (130-400); RBC 5.43 10^6/uL (4.36-5.78); RDW 15.1 % (11.8-14.1); RDW-SD 48.7 fL; WBC 5.45 10^3/uL (4.4-10.8)
[2023-05-20 07:39] LABS: ALT 21 U/L (16-63); AST 16 U/L (15-37); Albumin 3.5 g/dL (3.4-5.0); Alkaline Phosphatase 91 U/L (46-116); Anion Gap 5.7 mmol/L (3-11); BUN 24 mg/dL (7-18); Bilirubin, Total 1.1 mg/dL (0.2-1.0); CO2 27.3 mmol/L (21.0-32.0); CREATININE 1.3 mg/dL (0.70-1.30); Calcium 9.5 mg/dL (8.5-10.1); Chloride 102 mmol/L (98-107); Estimated GFR 55.19 (mL/min/1.73m2); Glucose 296 mg/dL (74-106); LDH 173 U/L (85-227); Potassium 4.7 mmol/L (3.5-5.1); Sodium 135 mmol/L (136-145)
[2023-05-21 09:25] LABS: IgA 184 mg/dL (85-499); IgG 933 mg/dL (610-1616); IgM 36 mg/dL (35-242)
== END 2023-05-20 01:29 | disposition home or self-care (01) ==
LOC: LBO 01:28
PROVIDERS: PCP Internal Medicine; Visit Provider Internal Medicine Hematology & Oncology
DX: C91.10 Chronic lymphocytic leukemia of B-cell type not having achieved remission (principal)
CPT/HCPCS: 36415; 80053; 82784; 83615; 85025

== ENCOUNTER 2023-09-03 03:38 | Outpatient (CLI) | payer MEDICARE, SELFPAY ==
[2023-09-03 10:24] LABS: Abs Immature Grans 0.01 10^3/uL (0.0-0.06); Absolute Basophil Count 0.03 10^3/uL (0.0-0.2); Absolute Eosinophil Count 0.08 10^3/uL (0.0-0.7); Absolute Lymphocyte Count 1.13 10^3/uL (1.2-3.4); Absolute Monocyte Count 0.36 10^3/uL (0.1-0.8); Absolute Neutrophil Count 3.24 10^3/uL (1.2-6.7); Basophils % 0.6; Eosinophils % 1.6; HCT 44.7 % (40.0-50.0); HGB 15.4 g/dL (13.5-17.5); Immature Grans % 0.2; Lymphocytes % 23.3; MCH 30.7 pg (27.0-33.0); MCHC 34.5 % (32.0-36.0); MCV 89 fL (80-95); MPV 10.1 fL (8.0-11.0); Monocytes % 7.4; Neutrophils % 66.9; Platelet Count 144 10^3/uL (130-400); RBC 5.01 10^6/uL (4.36-5.78); RDW 12.9 % (11.8-14.1); WBC 4.85 10^3/uL (4.4-10.8)
[2023-09-03 11:06] LABS: ALT 22 U/L (16-63); AST 15 U/L (15-37); Albumin 3.4 g/dL (3.4-5.0); Alkaline Phosphatase 78 U/L (46-116); Anion Gap 9.2 mmol/L (3-11); BUN 18 mg/dL (7-18); Bilirubin, Total 1.3 mg/dL (0.2-1.0); CO2 26.8 mmol/L (21.0-32.0); CREATININE 1.3 mg/dL (0.70-1.30); Calcium 8.7 mg/dL (8.5-10.1); Chloride 102 mmol/L (98-107); Estimated GFR 55.19 (mL/min/1.73m2); Glucose 252 mg/dL (74-106); LDH 165 U/L (85-227); Potassium 4.4 mmol/L (3.5-5.1); Sodium 138 mmol/L (136-145); Total Protein 6.8 g/dL (6.4-8.2)
[2023-09-04 10:04] LABS: IgA 153 mg/dL (85-499); IgG 929 mg/dL (610-1616); IgM 29 mg/dL (35-242)
== END 2023-09-03 03:39 | disposition home or self-care (01) ==
LOC: LBO 03:39
PROVIDERS: PCP Internal Medicine; Visit Provider Internal Medicine Hematology & Oncology
DX: C91.10 Chronic lymphocytic leukemia of B-cell type not having achieved remission (principal)
CPT/HCPCS: 36415; 80053; 82784; 83615; 83735; 85025

== ENCOUNTER 2023-12-17 09:29 | Outpatient (CLI) | payer MEDICARE, SELFPAY ==
[2023-12-17 07:59] LABS: Abs Immature Grans 0.02 10^3/uL (0.0-0.06); Absolute Basophil Count 0.04 10^3/uL (0.0-0.2); Absolute Eosinophil Count 0.11 10^3/uL (0.0-0.7); Absolute Lymphocyte Count 1.15 10^3/uL (1.2-3.4); Absolute Monocyte Count 0.42 10^3/uL (0.1-0.8); Absolute Neutrophil Count 3.12 10^3/uL (1.2-6.7); Basophils % 0.8 %; Eosinophils % 2.3 %; HCT 44.8 % (40.0-50.0); HGB 14.8 g/dL (13.5-17.5); Immature Grans % 0.4 %; Lymphocytes % 23.7 %; MCH 30.6 pg (27.0-33.0); MCV 93 fL (80-95); MPV 9.6 fL (8.0-11.0); Monocytes % 8.6 %; Neutrophils % 64.2 %; Platelet Count 141 10^3/uL (130-400); RBC 4.84 10^6/uL (4.36-5.78); RDW 12.8 % (11.8-14.1); RDW-SD 43.4 fL; WBC 4.86 10^3/uL (4.4-10.8)
[2023-12-17 08:17] LABS: ALT 32 U/L (16-63); AST 22 U/L (15-37); Albumin 3.4 g/dL (3.4-5.0); Alkaline Phosphatase 74 U/L (46-116); Anion Gap 5.8 mmol/L (3-11); BUN 20 mg/dL (7-18); Bilirubin, Total 1.1 mg/dL (0.2-1.0); CO2 28.2 mmol/L (21.0-32.0); CREATININE 1.2 mg/dL (0.70-1.30); Calcium 8.5 mg/dL (8.5-10.1); Chloride 103 mmol/L (98-107); Estimated GFR 60.38 (mL/min/1.73m2); Glucose 186 mg/dL (74-106); LDH 173 U/L (85-227); Potassium 4.8 mmol/L (3.5-5.1); Sodium 137 mmol/L (136-145); Total Protein 6.8 g/dL (6.4-8.2)
== END 2023-12-17 09:30 | disposition home or self-care (01) ==
LOC: LBO 09:29
PROVIDERS: PCP Internal Medicine; Referring Provider Internal Medicine Hematology & Oncology; Visit Provider Internal Medicine Hematology & Oncology
DX: C91.10 Chronic lymphocytic leukemia of B-cell type not having achieved remission (principal)
CPT/HCPCS: 36415; 80053; 83615; 85025

== ENCOUNTER 2024-04-21 08:12 | Outpatient (CLI) | payer MEDICARE, SELFPAY ==
[2024-04-21 08:14] LABS: Abs Immature Grans 0.02 10^3/uL (0.0-0.06); Absolute Basophil Count 0.04 10^3/uL (0.0-0.2); Absolute Eosinophil Count 0.13 10^3/uL (0.0-0.7); Absolute Lymphocyte Count 1.22 10^3/uL (1.2-3.4); Absolute Monocyte Count 0.42 10^3/uL (0.1-0.8); Absolute Neutrophil Count 3.46 10^3/uL (1.2-6.7); Basophils % 0.8 %; Eosinophils % 2.5 %; HGB 15.3 g/dL (13.5-17.5); Immature Grans % 0.4 %; Lymphocytes % 23.1 %; MCHC 33.3 % (32.0-36.0); MCV 93 fL (80-95); MPV 10.3 fL (8.0-11.0); Monocytes % 7.9 %; Neutrophils % 65.3 %; Platelet Count 144 10^3/uL (130-400); RBC 4.94 10^6/uL (4.36-5.78); RDW 12.9 % (11.8-14.1); RDW-SD 43.9 fL; WBC 5.29 10^3/uL (4.4-10.8)
[2024-04-21 08:32] LABS: ALT 21 U/L (16-63); AST 15 U/L (15-37); Albumin 3.4 g/dL (3.4-5.0); Alkaline Phosphatase 90 U/L (46-116); Anion Gap 6.9 mmol/L (3-11); BUN 23 mg/dL (7-18); Bilirubin, Total 0.95 mg/dL (0.2-1.0); CO2 27.1 mmol/L (21.0-32.0); CREATININE 1.3 mg/dL (0.70-1.30); Calcium 8.9 mg/dL (8.5-10.1); Chloride 105 mmol/L (98-107); Estimated GFR 54.85 (mL/min/1.73m2); Glucose 337 mg/dL (74-106); LDH 146 U/L (85-227); Magnesium 1.9 mg/dL (1.8-2.4); Potassium 4.7 mmol/L (3.5-5.1); Sodium 139 mmol/L (136-145); Total Protein 6.8 g/dL (6.4-8.2)
== END 2024-04-21 08:13 | disposition home or self-care (01) ==
LOC: LBO 08:13
PROVIDERS: PCP Internal Medicine; Referring Provider Internal Medicine Hematology & Oncology; Visit Provider Internal Medicine Hematology & Oncology
DX: C91.10 Chronic lymphocytic leukemia of B-cell type not having achieved remission (principal)
CPT/HCPCS: 36415; 80053; 83615; 83735; 85025

== ENCOUNTER 2024-06-08 17:00 | Outpatient (REF) | payer MEDICARE, SELFPAY ==
[2024-06-08 19:49] LABS: Abs Immature Grans 0.03 10^3/uL (0.0-0.06); Absolute Basophil Count 0.03 10^3/uL (0.0-0.2); Absolute Eosinophil Count 0.07 10^3/uL (0.0-0.7); Absolute Lymphocyte Count 1.13 10^3/uL (1.2-3.4); Absolute Monocyte Count 0.56 10^3/uL (0.1-0.8); Absolute Neutrophil Count 7.62 10^3/uL (1.2-6.7); Basophils % 0.3 %; Eosinophils % 0.7 %; HCT 42.1 % (40.0-50.0); HGB 13.8 g/dL (13.5-17.5); Immature Grans % 0.3 %; MCH 30.4 pg (27.0-33.0); MCHC 32.8 % (32.0-36.0); MCV 93 fL (80-95); MPV 11.1 fL (8.0-11.0); Monocytes % 5.9 %; Neutrophils % 80.8 %; Platelet Count 185 10^3/uL (130-400); RBC 4.54 10^6/uL (4.36-5.78); RDW-SD 43.7 fL; WBC 9.44 10^3/uL (4.4-10.8)
[2024-06-08 20:05] LABS: Anion Gap 8.2 mmol/L (3-11); BUN 20 mg/dL (7-18); CO2 27.8 mmol/L (21.0-32.0); CREATININE 1.3 mg/dL (0.70-1.30); Calcium 8.8 mg/dL (8.5-10.1); Chloride 104 mmol/L (98-107); Estimated GFR 54.85 (mL/min/1.73m2); Glucose 143 mg/dL (74-106); Potassium 3.9 mmol/L (3.5-5.1); Sodium 140 mmol/L (136-145); Uric Acid 3.4 mg/dL (3.5-7.2)
== END 2024-06-08 17:01 | disposition home or self-care (01) ==
LOC: NCHCN 17:00
PROVIDERS: PCP Internal Medicine; Visit Provider Physician Assistant
DX: I25.10 Atherosclerotic heart disease of native coronary artery without angina pectoris (principal)
CPT/HCPCS: 80048; 84550; 85025

== ENCOUNTER 2024-06-14 14:14 | Outpatient (REF) | payer MEDICARE, SELFPAY ==
[2024-06-14 20:07] LABS: COMMENT (LAB VIEW ONLY) 113.01 mg/dL; Microalb ug/mg Crea 35.8 ug/mg Cr
== END 2024-06-14 14:15 | disposition home or self-care (01) ==
LOC: NCHCN 14:14
PROVIDERS: PCP Internal Medicine; Visit Provider Internal Medicine
DX: E11.9 Type 2 diabetes mellitus without complications (principal)
CPT/HCPCS: 82043; 82570

== ENCOUNTER 2024-11-10 11:43 | Outpatient (REF) | payer MEDICARE, SELFPAY ==
[2024-11-10 20:19] LABS: COMMENT (LAB VIEW ONLY) 143.72 mg/dL; Microalb ug/mg Crea 29.4 ug/mg Cr
== END 2024-11-10 11:44 | disposition home or self-care (01) ==
LOC: NCHCN 11:43
PROVIDERS: PCP Internal Medicine; Visit Provider Internal Medicine
DX: N32.81 Overactive bladder (principal)
CPT/HCPCS: 82043; 82570

== ENCOUNTER 2024-12-08 02:45 | Outpatient (CLI) | payer MEDICARE, SELFPAY ==
[2024-12-08 08:26] LABS: Abs Immature Grans 0.05 10^3/uL (0.0-0.06); Absolute Basophil Count 0.03 10^3/uL (0.0-0.2); Absolute Eosinophil Count 0.04 10^3/uL (0.0-0.7); Absolute Lymphocyte Count 1.11 10^3/uL (1.2-3.4); Absolute Monocyte Count 0.65 10^3/uL (0.1-0.8); Absolute Neutrophil Count 8.29 10^3/uL (1.2-6.7); Basophils % 0.3 %; Eosinophils % 0.4 %; HCT 41.3 % (40.0-50.0); HGB 13.4 g/dL (13.5-17.5); Immature Grans % 0.5 %; Lymphocytes % 10.9 %; MCH 30.2 pg (27.0-33.0); MCHC 32.4 % (32.0-36.0); MCV 93 fL (80-95); MPV 10.5 fL (8.0-11.0); Monocytes % 6.4 %; Neutrophils % 81.5 %; Platelet Count 146 10^3/uL (130-400); RBC 4.43 10^6/uL (4.36-5.78); RDW 13.9 % (11.8-14.1); WBC 10.17 10^3/uL (4.4-10.8)
[2024-12-08 08:48] LABS: ALT 20 U/L (16-63); AST 14 U/L (15-37); Albumin 3.4 g/dL (3.4-5.0); Alkaline Phosphatase 73 U/L (46-116); Anion Gap 5.7 mmol/L (3-11); BUN 21 mg/dL (7-18); Bilirubin, Total 1.5 mg/dL (0.2-1.0); CO2 28.3 mmol/L (21.0-32.0); CREATININE 1.2 mg/dL (0.70-1.30); Chloride 103 mmol/L (98-107); Glucose 190 mg/dL (74-106); LDH 148 U/L (85-227); Potassium 4.6 mmol/L (3.5-5.1); Sodium 137 mmol/L (136-145); Total Protein 6.9 g/dL (6.4-8.2)
[2024-12-09 09:34] LABS: IgA 185 mg/dL (85-499); IgG 952 mg/dL (610-1616); IgM 43 mg/dL (35-242)
== END 2024-12-08 02:46 | disposition home or self-care (01) ==
LOC: LBO 02:52
PROVIDERS: PCP Internal Medicine; Visit Provider Nurse Practitioner Adult Health
DX: C91.10 Chronic lymphocytic leukemia of B-cell type not having achieved remission (principal)
CPT/HCPCS: 36415; 80053; 82784; 83615; 85025

== ENCOUNTER 2025-05-11 03:14 | Outpatient (CLI) | payer MEDICARE, SELFPAY ==
[2025-05-11 07:48] LABS: Abs Immature Grans 0.02 10^3/uL (0.0-0.06); HCT 41.8 % (40.0-50.0); HGB 13.6 g/dL (13.5-17.5); Immature Grans % 0.4 %; MCH 30.0 pg (27.0-33.0); MCHC 32.5 % (32.0-36.0); MCV 92 fL (80-95); MPV 10.1 fL (8.0-11.0); Platelet Count 150 10^3/uL (130-400); RBC 4.54 10^6/uL (4.36-5.78); RDW 13.2 % (11.8-14.1); RDW-SD 44.4 fL; WBC 5.43 10^3/uL (4.4-10.8)
[2025-05-11 08:09] LABS: ALT 20 U/L (16-63); AST 12 U/L (15-37); Albumin 3.2 g/dL (3.4-5.0); Alkaline Phosphatase 85 U/L (46-116); Anion Gap 7.3 mmol/L (3-11); BUN 15 mg/dL (7-18); Bilirubin, Total 0.7 mg/dL (0.2-1.0); CO2 27.7 mmol/L (21.0-32.0); Calcium 8.5 mg/dL (8.5-10.1); Chloride 103 mmol/L (98-107); Glucose 260 mg/dL (74-106); LDH 155 U/L (85-227); Potassium 4.8 mmol/L (3.5-5.1); Sodium 138 mmol/L (136-145); Total Protein 6.6 g/dL (6.4-8.2)
== END 2025-05-11 03:15 | disposition home or self-care (01) ==
LOC: LBO 03:14
PROVIDERS: PCP Internal Medicine; Visit Provider Internal Medicine Hematology & Oncology
DX: C91.10 Chronic lymphocytic leukemia of B-cell type not having achieved remission (principal)
CPT/HCPCS: 36415; 80053; 83615; 85025